=== PATIENT | female | born 1965 | race Caucasian/White ===

== ENCOUNTER → 2023-03-15 14:44 | Outpatient (REF) | payer OTHER, SELFPAY ==
--- NOTE | 2023-03-15 14:50 | CA_ITS ---
Transthoracic Echocardiogram Patient (Last, First, Middle): Stacey Winston, Gender: Female Date of : 1965 Age: 57 Procedure Date: 03/15/2023 Procedure Type: Transthoracic Echocardiogram Location: OP Height: 170.18 cm Weight: 147.87 kg BSA: 2.49 m2 Heart Rate: 72 bpm Lock Assembler: JAMAL Referring MD: Brian Jarrett MD Institution Director: Oscar Clements MD Symptoms: I48.91 UNSPEC AFIB Study Quality: Adequate w contrast ECG Rhythm: Sinus Conclusions: - 1. Normal LV ejection fraction of 65-70% 2. Normal cardiac valvular Doppler 3. Upper limits of normal ascending aortic size at 3.5 cm 4. No gross pericardial effusion Findings Procedure Information Contrast agent, definity, is being given per protocol without apparent complications. Left Ventricle Normal left ventricular size, thickness, and systolic function. The visually estimated ejection fraction is between 65-70%. Spectral Doppler is indicative of a normal filling pattern. E/E prime ratio is <8, consistent with normal filling pressures. Evidence suggests grade I (mild) diastolic dysfunction. Right Ventricle Normal right ventricular cavity size and systolic function. Atria The left atrium is likely dilated. Interatrial shunt cannot be excluded. The right atrium is normal in size. Aortic Valve Normal aortic valve structure and function. There is no aortic valve stenosis. There is no aortic valve regurgitation. Mitral Valve Normal mitral valve structure and function. There is no mitral valve regurgitation. There is no mitral valve stenosis. Pulmonic Valve The pulmonic valve is likely normal. Tricuspid Valve Normal tricuspid valve structure. Normal right atrial pressure. Great Vessels The pulmonary artery was not well visualized. Venous The inferior vena cava is normal in size and collapses greater than 50% with inspiration. Pericardium/Pleural There is no evidence of pericardial effusion. Prior Study Comparison no previous study in the last 5 years for comparison Measurements 2D Linear Measurements IVSd: 1.13 0.6-0.9/0.6-1.0 cm LVIDd: 5.31 3.9-5.3/4.2-5.9 cm LVIDd Index: 2.13 2.4-3.2/2.2-3.1 cm/m2 LVIDs: 3.67 2.0-3.6 cm LVPWd: 1.10 0.7-1.1 cm LA Diam: 4.20 2.7-3.8/3.0-4.0 cm LAIDs Index: 1.69 1.5-2.3 cm/m2 LV Mass: 290.10 67-162/88-224 g LV Mass Index: 116.50 43-95/49-115 g/m2 LVOT Diam: 2.10 3.0+(-)1.3 cm 2D Systolic Function EF 4C: 69.50 >55% EF 2C: 64.00 >55% EF BiP: 67.00 >55% Mitral Valve MV Pk E: 0.63 MV PK A: 0.63 MV Decel Time: 244.00 E/A: 1.00 E'Lateral: 10.70 E'Medial: 7.40 E/E' Med: 8.50 E/E' Lat: 5.90 PHT: 72.00 MVA PHT: 3.06 Decel Greer: 2.56 Aortic Valve AoV Pk Joni: 1.33 AoV Pk Grad: 7.00 KADEN: 3.10 LVOT LVOT Pk Joni: 1.19 LVOT Mn Joni: 0.86 LVOT VTI: 0.24 LVOT Pk Grad: 6.00 LVOT Mn Grad: 3.00 LVOT Diam: 2.10 LVOT Area: 3.46 Diastolic Function MV Pk E: 0.63 MV Pk A: 0.63 E/A: 1.00 E'Medial: 7.40 E/E' Med: 8.50 E' Laterial: 10.70 E/E' Lat: 5.90 Right Ventricle TAPSE (mm): 24.00 TVS' Joni: 13.80 Tricuspid Valve RA Press: 3.00 Great Vessels Aorta Sinus of Valsalva: 3.10 2.0-3.5 cm Ao Asc: 3.50 2.1-3.4 cm Pulmonary Veins Pulm Vein S/D 1.20 Pulmonary Valve PV Pk Joni: 0.92 Peak PV Grad: 3.00 Updated in Other Vendor System with Status of Final Oscar Clements MD electronically signed on 03/15/2023 4:23:42 PM with status of Final
== END ==
LOC: HO.CARD 14:44
PROVIDERS: PCP Physician Assistant; Visit Provider Family Medicine
DX: I48.92 Unspecified atrial flutter (principal)
CPT/HCPCS: 93306; Q9957

== ENCOUNTER → 2023-03-15 14:50 | Outpatient (BNV) | payer OTHER, SELFPAY | PROVIDERS: PCP Physician Assistant; Visit Provider Internal Medicine Cardiovascular Disease | DX: I48.91 Unspecified atrial fibrillation (principal) | CPT/HCPCS: 93306 ==